=== PATIENT | male | born 1995 | race Two or more races ===

== ENCOUNTER 2017-02-12 00:35 | Emergency (ER) | payer SELFPAY ==
[~2017-02-12] VITALS: Ht 175.3 cm; Wt 89.9 kg
[2017-02-12 00:45] VITALS: BP 151/84
== END 2017-02-12 03:56 | disposition left against medical advice (07) ==
LOC: ER 00:38
DX: R42 Dizziness and giddiness (principal); R51 Headache; M54.2 Cervicalgia; Y08.89XA Assault by other specified means, initial encounter; Y93.89 Activity, other specified; Y99.8 Other external cause status; Y92.89 Other specified places as the place of occurrence of the external cause
CPT/HCPCS: 70450; 70486; 72125